=== PATIENT | male | born 1950 | race Caucasian/White ===

== ENCOUNTER → 2023-11-05 06:32 | Day surgery (SDC) | payer MEDICARE, OTHER, SELFPAY | LOC: GI 06:32 | PROVIDERS: ATTENDING PHYSICIAN Internal Medicine Gastroenterology; FAMILY PHYSICIAN Family Medicine | DX: K63.5 Polyp of colon (principal); K57.30 Diverticulosis of large intestine without perforation or abscess without bleeding; K64.8 Other hemorrhoids; R19.4 Change in bowel habit; Z85.038 Personal history of other malignant neoplasm of large intestine; Z98.0 Intestinal bypass and anastomosis status | CPT/HCPCS: 45380; 88305 ==

== ENCOUNTER 2023-11-20 10:24 | Outpatient (RCR) | payer MEDICARE, OTHER, SELFPAY | END 2023-11-21 10:14 | disposition home or self-care (01) | LOC: RPT 10:24 | PROVIDERS: ATTENDING PHYSICIAN Internal Medicine Gastroenterology; FAMILY PHYSICIAN Family Medicine | DX: R15.1 Fecal smearing (principal); R15.2 Fecal urgency; R15.9 Full incontinence of feces; M62.89 Other specified disorders of muscle; Z73.6 Limitation of activities due to disability; Z85.038 Personal history of other malignant neoplasm of large intestine; Z98.0 Intestinal bypass and anastomosis status | CPT/HCPCS: 97163; 97530 ==

== ENCOUNTER 2023-12-04 15:14 | Outpatient (RCR) | payer MEDICARE, OTHER, SELFPAY | END 2023-12-04 23:59 | disposition home or self-care (01) | LOC: RPT 15:14 | PROVIDERS: ATTENDING PHYSICIAN Internal Medicine Gastroenterology; FAMILY PHYSICIAN Family Medicine | DX: R15.1 Fecal smearing (principal); R15.2 Fecal urgency; R15.9 Full incontinence of feces; M62.89 Other specified disorders of muscle; Z73.6 Limitation of activities due to disability; Z85.038 Personal history of other malignant neoplasm of large intestine; Z98.0 Intestinal bypass and anastomosis status | CPT/HCPCS: 97140; 97530 ==

== ENCOUNTER 2024-01-15 15:56 | Outpatient (RCR) | payer MEDICARE, OTHER, SELFPAY | END 2024-01-15 23:59 | disposition home or self-care (01) | LOC: RPT 15:56 | PROVIDERS: ATTENDING PHYSICIAN Internal Medicine Gastroenterology; FAMILY PHYSICIAN Family Medicine | DX: R15.1 Fecal smearing (principal); R15.2 Fecal urgency; R15.9 Full incontinence of feces; M62.89 Other specified disorders of muscle; Z73.6 Limitation of activities due to disability; Z85.038 Personal history of other malignant neoplasm of large intestine; Z98.0 Intestinal bypass and anastomosis status | CPT/HCPCS: 97112; 97140; 97530 ==

== ENCOUNTER 2024-02-19 15:52 | Outpatient (RCR) | payer MEDICARE, OTHER, SELFPAY | END 2024-02-19 23:59 | disposition home or self-care (01) | LOC: RPT 15:52 | PROVIDERS: ATTENDING PHYSICIAN Internal Medicine Gastroenterology; FAMILY PHYSICIAN Family Medicine | DX: R15.1 Fecal smearing (principal); R15.2 Fecal urgency; R15.9 Full incontinence of feces; M62.89 Other specified disorders of muscle; Z73.6 Limitation of activities due to disability; Z85.038 Personal history of other malignant neoplasm of large intestine; Z98.0 Intestinal bypass and anastomosis status | CPT/HCPCS: 97110; 97112; 97140; 97530 ==

== ENCOUNTER 2024-02-28 23:26 | Inpatient (IN) | payer MEDICARE, OTHER, SELFPAY ==
[2024-02-28 19:52] VITALS: BP 155/106
[2024-02-28 20:12] VITALS: BP 104/73
--- NOTE | 2024-02-28 20:22 | ED.GENMED ---
History of Present Illness
General
Chief Complaint: Rectal Bleeding
Source: patient
Exam Limitations: none
Time Seen by Provider: 02/28/24 20:17
Travel History
Have you had any contact with someone who has COVID-19?: No
Do you have any symptoms of coronavirus? Fever > 100 degrees, chills, cough, shortness of breath, sore throat, loss of taste or smell, muscle aches, or headache?: No
History of Present Illness
History of Present Illness:
See MDM
Past History
Past History
ED Past Medical History: Cancer (Rectal cancer, cecal carcinoma, CLL (dx 2015)-follows with Dr. Vasquez.), HTN and Hypercholesterolemia
ED Past Surgical History: Bowel resection (Rectal carcinoma resection 1986, right hemicolectomy and lysis of adhesions March 2006 for excision of cecal carcinoma.)
Social History
Tobacco: Non-smoker
Alcohol: Occasional
Personal:
Living: with family
Employment: Employed
Family History
Family History: Hypertension and Other (Colon polyps)
Phy Exam
Physical Exam
Physical Exam:
See MDM
Course
Orders/Labs/Results
Orders:
Orders
02/28/24 20:26
0.9% Sodium Chloride 1000 ml [Nss] 1,000 ml IV BOLUS
02/28/24 20:29
Type+Screen Urgent
Complete Blood Count/With Diff Urgent
Comprehensive Metabolic Panel Urgent
PTT Urgent
Prothrombin Time Urgent
Abnormal Lab Results
02/28/24
20:29
WBC 162.4 H* 10^3/uL
(4.8-10.8)
RBC 3.97 L 10^6/uL
(4.70-6.10)
Hgb 12.2 L g/dL
(13.0-18.0)
Hct 37.3 L %
(39.0-52.0)
MCHC 32.7 L g/dL
(33.0-37.0)
Abs Immat Gran (auto) 0.3 H 10^3/uL
(0-0.05)
Absolute Neuts (auto) 6.8 H 10^3/uL
(1.4-6.5)
Absolute Lymphs (auto) 153.1 H 10^3/uL
(1.2-3.4)
Absolute Monos (auto) 1.8 H 10^3/uL
(0.1-0.6)
Neutrophils % 4.2 L %
(42.2-75.2)
Lymphocytes % 94.3 H %
(20.5-51.1)
Monocytes % 1.1 L %
(1.7-9.3)
APTT 23.1 L Sec
(23.4-35.0)
BUN 28 H mg/dl
(9-20)
Glucose 125 H mg/dl
(70-99)
Total Protein 6.1 L g/dl
(6.3-8.2)
02/28/24 20:29
02/28/24 20:29
Vital Signs
Initial and Last Documented VS:
Initial Vital Signs
Temp Pulse Resp BP Pulse Ox
99.3 F 135 20 155/106 96
02/28/24 19:52 02/28/24 19:52 02/28/24 19:52 02/28/24 19:52 02/28/24 19:52
Last Documented Vital Signs
Temp Pulse Resp BP Pulse Ox
99.3 F 87 20 130/66 94
02/28/24 19:52 02/28/24 21:15 02/28/24 21:15 02/28/24 21:00 02/28/24 21:15
MDM/Problems Addressed
Differential Diagnosis Includes:
HPI and MDM Narrative:
73-year-old male presenting for evaluation of multiple episodes bright red rectal bleeding. Patient has a history of colon cancer and states he follows with colorectal surgery. He states he has had a prior resection and is under the impression
that he is cancer free. Patient states he had a colonoscopy 4 months ago with biopsies performed. He denies being on blood thinners. Patient states he had a routine appointment yesterday with colorectal surgery. Internal exam showed no bleeding.
Patient states he started to have several episodes of bright red rectal bleeding today. Patient almost passed out in triage and was brought back immediately. Patient feeling better after he was placed in the bed. He states he has had 5-6
episodes of bright red rectal bleeding. Nursing confirmed that it was maroon-colored
Physical exam
General: Weak and fatigued
HEENT: protecting airway
Neck: appears supple
CV: No evidence of cyanosis
Resp: No accessory muscle use
Abd: Non-distended. Soft and nontender
Extremities: No deformities
Neuro: alert
Psych: Normal affect
Skin: Pale
Problems Addressed including Acute and Chronic Conditions affecting care:
1. Lower GI bleeding
Acuity: acute
Prognosis: unstable
Details: Likely in the setting of diverticulosis versus internal hemorrhoids. Will obtain hemoglobin and type and screen
Updates
Hemoglobin stable at 12. Baseline around 14. No rectal bleeding while in the emergency department. Likely source is diverticulosis. Will admit for hemoglobin
Differential Diagnosis (but not limited to): Diverticulosis, internal hemorrhoid bleeding, colon cancer
Testing considered: CT abdomen/pelvis but he denies abdominal pain
Drug therapy (if applicable): OTC meds, please see d/c instruction regarding Rx drugs
Amount and/or Complexity of Data Reviewed
Clinical info obtained from: Patient
External data reviewed: colonoscopy 4 months ago showed internal hemorrhoids, left-sided diverticulosis and a polyp that was removed
Labs I independently reviewed (but not limited to): Expected elevation of white blood cell given history of leukemia. Hemoglobin stable
Radiology: N/A
Pulse Ox: not hypoxic
EKG independently reviewed: N/A
Sludge Mill Operator: N/A
Critical Care: N/A
Risk of Complication:
Social Determinants of health: Good social support
Discussed with other providers: Hospitalist
Escalation of Care includes Admit/Obs: Given the significant amount of GI bleeding, will admit for hemoglobin trending
Occasional wrong word or 'sound a like' substitutions may have occurred due to the inherent limitations of voice recognition software. Read the chart carefully and recognize, using context, where substitutions have occurred.
*Critical Care Note
Total Time (30-74mins, 75-104mins- exclusive of procedures): Not Applicable
ED Attending Note
-
Portions of this chart may have been created with voice recognition software.� Occasional wrong word or��sound alike� substitutions may have occurred due to the inherent limitations of voice recognition software.
Discharge Plan
Departure
Patient Disposition: Admit
Date of Disposition: 02/28/24
Time of Disposition: 21:53
Admit to: Med/Surg
Presentation/result/management discussed w/ accepting MD/DO: Hospitalist
Discharge Problem:
Rectal bleeding
Prescriptions:
No Action
simvastatin 20 MG tablet
20 mg PO HS
aspirin 81 MG tablet,chewable
81 mg PO HS
lisinopril [Zestril] 40 MG tablet
40 mg PO HS
cholestyramine (with sugar) 4 GM powder in packet
4 gm PO DAILY
Metamucil Packet
1 packet PO DAILY
Theragen Tablet
1 tab PO HS
felodipine 10 mg Tablet Extended Release 24 Hr
10 mg PO HS
Tylenol PM Extra Strength 25-500 mg Tablet
2 tab PO HS
loperamide [Imodium A-D] 1 mg/7.5 mL Liquid
2 mg PO Q4HPRN PRN (Reason: diarrhea)
Referrals:
Lissa Toussaint DO [Family Provider] -
Interventions
Interventions:
*General Assessment Last Done: 02/28/24 19:57
*Neglect/Abuse Screening Last Done: 02/28/24 19:57
*ED COVID-19 Vaccine History Last Done: 02/28/24 19:57
TQ-Naqyco-Lbdludqypj Assessment Last Done: 02/28/24 20:56
ED- Cardiac Assessment Last Done: 02/28/24 20:55
ED- Pulmonary Assessment Last Done: 02/28/24 20:56
Discharge Date and Time
Print Language: MONGOLIAN
[2024-02-28] MEDS: NSS 1000 IV (20:28)
[2024-02-28 20:38] LABS: % Eosinophils 0.2 % (0-6); % Immature Granulocytes 0.2 % (0-0.5); % Lymphocytes 94.3 % (20.5-51.1); % Monocytes 1.1 % (1.7-9.3); % Neutrophils 4.2 % (42.2-75.2); Absolute Basophils 0.1 10^3/uL (0-0.2); Absolute Eosinophils 0.3 10^3/uL (0-0.7); Absolute Immature Granulocytes 0.3 10^3/uL (0-0.05); Absolute Lymphocytes 153.1 10^3/uL (1.2-3.4); Absolute Monocytes 1.8 10^3/uL (0.1-0.6); Absolute Neutrophils 6.8 10^3/uL (1.4-6.5); Hematocrit 37.3 % (39.0-52.0); Hemoglobin 12.2 g/dL (13.0-18.0); Mean Corp Hgb Conc. 32.7 g/dL (33.0-37.0); Mean Corpuscular Hgb 30.7 pg (27.0-31.0); Mean Platelet Volume 9.4 fL (7.4-10.4); Nucleated Red Blood Cells % 0 % (-); Platelet Count 225 10^3/uL (130-400); Red Blood Cell Count 3.97 10^6/uL (4.70-6.10); Red Cell Dist. Width 13.2 % (11.5-14.5)
[2024-02-28 20:46] LABS: APTT 23.1 Sec (23.4-35.0); INR 1.01; PT 13.3 Sec (11.4-14.6)
[2024-02-28 20:47] VITALS: BP 140/126
[2024-02-28 20:53] LABS: ALT (SGPT) 17 U/L (0-50); AST (SGOT) 25 U/L (17-59); Albumin 4.4 g/dl (3.5-5.0); Alkaline Phosphatase 64 U/L (38-126); Blood Urea Nitrogen 28 mg/dl (9-20); Calcium 9.3 mg/dl (8.4-10.2); Carbon Dioxide 25 mmol/L (22-30); Chloride 107 mmol/L (98-107); Glucose 125 mg/dl (70-99); Potassium 4.2 mmol/L (3.5-5.1); Sodium 141 mmol/L (135-145); Total Bilirubin 0.3 mg/dl (0.2-1.3); Total Protein 6.1 g/dl (6.3-8.2); eGFR > 60.00
[2024-02-28 21:00] VITALS: BP 130/66
[2024-02-28 21:12] LABS: White Blood Cell Count 162.4 10^3/uL (4.8-10.8)
[2024-02-28 22:00] VITALS: BP 131/63
--- NOTE | 2024-02-28 22:58 | HPS.HSE ---
Family Physician
-
Family Physician: Lissa Toussaint
Chief Complaint
-
Bright red blood per rectum
History of Present Illness
73-year-old male complaining of multiple episodes 6-8 of bright red rectal bleeding with some episodes flecks of stool 15 minutes after eating at a time and he will be this evening. He denies any abdominal pain or cramping. The patient reports he
had a follow-up yesterday with Dr. Duffy with digital rectal exam due to chronic incontinence of stool. He has been doing outpatient pelvic floor therapy. The patient reports he had history of colon cancer status post resection, right
hemicolectomy, rectal and cecal carcinoma. His last colonoscopy was 4 months ago he reports was normal. While in the ER he had maroon-colored stool. He denies headache, dizziness, fever, chills, chest pain or palpitations, cough, shortness of
breath, abdominal pain, nausea, vomiting, diarrhea. The patient has a past medical history of CLL Dx 2015, colon cancer status post resection 2001, rectal carcinoma 1986, cecal carcinoma with right hemicolectomy lysis adhesion 2005, HTN, HLD.
Medical History
Past Medical History
Past Medical History: Reports Other
Additional Past Medical History:
CLL Dx 2015
colon cancer, status post resection 2001
rectal carcinoma 1986
cecal carcinoma with right hemicolectomy lysis adhesion 2005
Chronic rectal incontinence is doing pelvic floor therapy
HTN
HLD
Past Surgical History: Reports Other
Additional Past Surgical History:
colon cancer status post resection 2001
rectal carcinoma 1986
cecal carcinoma with right hemicolectomy lysis adhesion 2005
Social History
Tobacco: Non-smoker
Alcohol: Occasional
Drug: None
Personal:
Living: With Family ()
Employment: Retired
Family History
Family History: Other (Father CAD/CABG age 95, mother age 93 )
Allergies / Home Medications
Allergies reflects when Allergies were last updated in [facility].
Home Medications with original date entered in [facility]
Allergy/Medication List:
Allergies
Allergy/AdvReac Type Severity Reaction Status Date / Time
NKA - No Known Allergies Allergy none Uncoded 02/28/24 19:51
Home Medications
aspirin 81 mg chewable tablet 81 mg PO HS 06/18/17
cholestyramine (with sugar) 4 gram powder for susp in a packet 4 gm PO DAILY 06/18/17
lisinopril 40 mg tablet (Zestril) 40 mg PO HS 06/18/17
simvastatin 20 mg tablet 20 mg PO HS 06/18/17
diphenhydramine 25 mg-acetaminophen 500 mg tablet (Tylenol PM Extra Strength) 2 tab PO HS 02/28/24
felodipine 10 mg tablet,extended release 24 hr 10 mg PO HS 02/28/24
loperamide 1 mg/7.5 mL oral liquid (Imodium A-D) 2 mg PO Q4HPRN PRN diarrhea 02/28/24
psyllium 1 packet PO DAILY 02/28/24
therapeutic multivitamin 1 tab PO HS 02/28/24
Review of Systems
-
History Source: Patient and Family ( and son at bedside)
A 12 point ROS was completed and negative except as noted: Yes
Constitutional: Denies Fever, Fatigue or Chills
EENT: Denies Sore Throat or Runny Nose
Respiratory: Denies Cough or Trouble Breathing
Cardiac: Denies Chest Pain, Diaphoresis, Palpitations or Syncope
Abdomen/GI: Reports Bloody Stools; Denies Abdominal Pain, Nausea, Vomiting, Diarrhea, Constipated or Black Stools
: Denies Dysuria, Frequency, Flank Pain, Incontinence or Difficulty Voiding
Musculoskeletal: Denies Joint Pain or Edema
Skin: Denies Itching or Rash
Neurological: Denies Dizzy, Headache or Weakness
Endocrine: Reports No Symptoms
Hematologic/Lymphatic: Reports No Symptoms
Psych: Reports Calm
Physical Exam
Vital Signs
Vital Signs
Temp Pulse Resp BP Pulse Ox
99.3 F 84 25 131/63 96
02/28/24 19:52 02/28/24 22:15 02/28/24 22:15 02/28/24 22:00 02/28/24 22:15
Physical Exam
General: Comfortable and Conversant; No Pain, Fever or Chills
HEENT: NormoCephalic, Anicteric, Moist mucous membranes, PERRLA, Vandiver Conjunctivae and No Ptosis
Respiratory: Clear; No Wheezes, Rales or Rhonchi
Cardiac: S1/S2 and Regular Rhythm; No Murmur, Rub, Gallop or Peripheral Edema
Breast: Deferred by me
GI: Soft, Non Tender, Non Distended, Normal Bowel Sounds and No Hepatosplenomegaly
Rectal: Hem Positive (Maroon stool in the ER)
Genito-urinary: Deferred by me
Musculoskeletal: No Clubbing, No Cyanosis and No Edema
Skin: Warm and Dry; No Rash
Neuro: AO x 3, No Motor Deficits, Nonfocal/grossly intact, Cranial Nerves Intact and No Sensory Deficits; No Slurred Speech, Facial Droop, Tremors or Sedated
Psych: Calm
Laboratory Results
-
02/28/24 20:29
02/28/24 20:29
Laboratory Results
PT 13.3 Sec (11.4-14.6) 02/28/24 20:29
INR 1.01 02/28/24 20:29
APTT 23.1 Sec (23.4-35.0) L 02/28/24 20:29
Total Bilirubin 0.3 mg/dl (0.2-1.3) 02/28/24 20:29
AST 25 U/L (17-59) 02/28/24 20:29
ALT 17 U/L (0-50) 02/28/24 20:
Alkaline Phosphatase 64 U/L (38-126) 02/28/24 20:29
Data Reviewed
-
Lab Data: Labs Reviewed by me
Impression/Plan
-
Impression/Plan:
Admit to tele
#Bright red blood per rectum concern for lower GI bleed vs diverticular bleed
#Chronic rectal incontinence is doing pelvic floor therapy
-Type and screen
-Hold aspirin, cholestyramine
-N.p.o.
-IV PPI daily
-Consult GI
-Consult colorectal
-H&H every 8 hours
#Hx Colon CA s/p resection 1985, 2001
#Rectal carcinoma 1986
#Right hemicolectomy with lysis of adhesions 2005 cecal carcinoma
-Hold cholestyramine, aspirin, lisinopril
Colonoscopy 11/05/2023: Nonbleeding internal hemorrhoids, diverticulosis left colon, 5 mm polyp removal at anus
#CLL Dx 2015
WBC 162.4 prior baseline 78.6 in 2019
-Consult Hematology
#HTN�benign
BP 131/63
Hold lisinopril 40 mg at bedtime
cont felodipine 10 mg at bedtime
#HLD
-Hold simvastatin 2 mg at bedtime
DVT prophylaxis
-SCDs
Full code
[2024-02-28 23:00] VITALS: BP 130/66
--- NOTE | 2024-02-28 23:03 | W.PN.UPDATE ---
Update Note
Progress Note Update
This note serves as an addendum to the H&P by adult health clinical nurse specialist PETER Darby CUMMINGS
HPI
73M HX CLL, Rectal s/p resection 1986, Rt hemicolectomy and lysis of adhesions March 2006 for excision of cecal carcinoma, essential HTN seen at ER for evalaution of BRBPR.
Acute BRBPR
- multiple episodes of maroon colored per ASSESSMENT DIRECTOR
- painless bleeding
- not on blood thinners
- associated with presyncopal/ almost passed out in tiage
- Last colonoscopy 11/05/2023 Dr Carolina
PMHX
Rectal cancer, cecal carcinoma, CLL (dx 2015)-follows with Dr. Vasquez.), HTN and Hypercholesterolemia
PSHX
Bowel resection (Rectal carcinoma resection 1986, right hemicolectomy and lysis of adhesions March 2006 for excision of cecal carcinoma.)
SHX:
Non-smoker
Alcohol: Occasional
Personal:
Living: with family
Employment: Employed
FHX
Hypertension and Other (Colon polyps)
Reviewed VS: T 99.3 HR 85 BP 130/63 RR25 POx 96
PE
Gen: looks tired
HEENT: anicteric
Neck: supple
Lungs: CTA
Cor: RRR S1 S2
Abdomen: Non-distended. Soft and nontender
[employer]ER[employer] SPECIALIST: AAO3, NFND
MS: no edema
Psych: appropriate
Data
WCC 162 - baseline 55- 70s
Hgb 12. Baseline around 14
INR 1.0
Unremarkable CMP
Last colonoscopy 11/05/23 : Dr Carolina
- Non-bleeding internal hemorrhoids.
- Diverticulosis in the left colon.
- Irregular dentate line.
- One 5 mm polyp at 70 cm proximal to the anus, removed with a jumbo cold forceps.
Resected and retrieved.
- Patent end-to-side colon-colonic anastomosis, characterized by healthy appearing mucosa.
- Biopsies were taken with a cold forceps from the entire colon for evaluation of microscopic colitis.
NO PRIOR hospitalist admission:
ASSESSMENT & PLAN
Acute multiple episodes painless maroon colored BPR suspect LGIB DDX: diverticular bleeding
Associated with presyncope
PHX Rectal s/p resection 1986, Rt hemicolectomy and lysis of adhesions March 2006 for excision of cecal CA
Of note; seen by Dr Duffy ( CRS ) yesterday and had DAMEON exam
- Interval Hgb drop from 14 to 12
- so far hemodynamically stable
- Blood consented
- T & S
- NPO and IVF
- Trend H & H q8h
- Held ASA and Lisinopril
- IV PPI daily
- GI consult
- CRS consult
HX CLL (dx 2015)
-follows with Dr. Vasquez
- Heme consult
Essential HTN
- Held Lisinopril
Hypercholesterolemia
- Held Simvastatin
DVT Px: SCD
Code: Full
IP TLM
[2024-02-29] VITALS (8 sets, daily range): BP systolic 129–149; BP diastolic 65–85; PULSE 80; O2SAT 98
--- NOTE | 2024-02-29 02:20 | TRANSFER ---
Pt admitted from ED. Pt was able to walk from stretcher to bed with no assistance. VSS. AAO x3. Pt oriented to room and call estevez placed within reach
[2024-02-29 02:27] LABS: Hematocrit 31.4 % (39.0-52.0); Hemoglobin 10.6 g/dL (13.0-18.0)
--- NOTE | 2024-02-29 07:11 | CON.ONC ---
Impression
Impression
Lower GI bleed (suspect diverticular bleed)
CLL Dx 2016
Plan
Plan
Monitor H&H. So far just modest anemia, hgB = 10.6.
GI consult pend.
CLL is stable and chronic and no specific intervention is needed at this time. Baseline WBC 117k, slight elevation to 162k now seen might just be stress leukemoid reaction and should improve with improvement of bleeding.
No other specific heme interventions. Outpt F/U with Dr. Vasquez when scheduled.
Will sign off. Call again if needed.
Patient History
History of Present Illness
CC: Rectal bleeding
HPI:
73-year-old male with prior remote history colon and rectal cancers 1986 & 2001 up to date with screening colonoscopy 10/2023 (Dr. Carolina) presents to ER with 5 episodes of bright red rectal bleeding yesterday at home. He had 2 additional episodes in
the ER. He had a follow-up with Dr. Duffy with digital rectal exam due to chronic incontinence of stool. He has been doing outpatient pelvic floor therapy. The patient reports he had history of colon cancer status post resection, right
hemicolectomy, rectal and cecal carcinoma. No further BRBPR since admitted to room. Only A/C he takes is ASA 81 QD.
He denies headache, dizziness, chest pain, palpitations, shortness of breath, abdominal pain, nausea, vomiting, diarrhea. Patient follows with Dr. Vasquez for stage 0 CLL on no Tx (expectant observation). We are consulted for CLL. GI and CRS
consulted for GI bleed (consults pending).
Past-Medical/Surgical History
PMH: CLL Dx 2015, colon (cecal) cancer status post resection 2001, rectal carcinoma 1986, HTN, HLD, chronic rectal incontinence is doing pelvic floor therapy
PSH: rectal carcinoma 1986, right hemicolectomy (cecal colon cancer) 2001, lysis adhesion 2005
SH:
Tobacco: Non-smoker
Alcohol: Occasional
Drug: None
Personal:
Living: With Family ()
Employment: Retired
FH: Father CAD/CABG age 95, mother age 93
Patient Medication
�Medication �Instructions �Recorded �Confirmed �Last Taken �Type
aspirin 81 mg chewable tablet 81 mg PO HS 06/18/17 02/28/24 02/27/24 History
cholestyramine (with sugar) 4 gram 4 gm PO DAILY 06/18/17 02/28/24 02/28/24 History
powder for susp in a packet
lisinopril 40 mg tablet (Zestril) 40 mg PO HS 06/18/17 02/28/24 02/27/24 History
simvastatin 20 mg tablet 20 mg PO HS 06/18/17 02/28/24 02/27/24 History
diphenhydramine 25 2 tab PO HS 02/28/24 02/28/24 02/27/24 History
mg-acetaminophen 500 mg tablet
(Tylenol PM Extra Strength)
felodipine 10 mg tablet,extended 10 mg PO HS 02/28/24 02/28/24 02/27/24 History
release 24 hr
loperamide 1 mg/7.5 mL oral liquid 2 mg PO Q4HPRN PRN diarrhea 02/28/24 02/28/24 02/28/24 History
(Imodium A-D)
psyllium 1 packet PO DAILY 02/28/24 02/28/24 02/28/24 History
therapeutic multivitamin 1 tab PO HS 02/28/24 02/28/24 02/27/24 History
Active Medications
Generic Name Dose Route Start Last Admin
Trade Name Freq PRN Reason Stop Dose Admin
Felodipine 10 mg 02/29/24 22:00
Felodipine 10 Mg Extended Release Tablet PO 03/28/24 21:59
HS SHERRI
Pantoprazole Sodium 40 mg 02/29/24 08:00
Pantoprazole Sodium 40 Mg/10 Ml Vial IV 03/28/24 07:59
DAILY SHERRI
Sodium Chloride 0 flush 02/28/24 23:00
Sodium Chloride 0.9% (Flush) Syringe IV 03/27/24 22:59
PER PROTOCOL SHERRI
Sodium Chloride 10 ml 02/29/24 08:00
Sodium Chloride 0.9% (Preservative Free) 10 Ml Vial IV 03/28/24 07:59
DAILY HSERRI
Physical Exam
-
General: Well Developed, Well Nourished, No Apparent Distress and Comfortable
HEENT: Negative Jaundice
Cardiology: S1 and S2
Pulmonary: Clear
GI: Soft and Normal Bowel Sounds; Negative Distended
Extremities: No C/C/E
Hematologic / Lymphatic: No Lymphadenopathy
Labs
Lab Results
WBC 162.4 10^3/uL (4.8-10.8) H* 02/28/24 20:29
RBC 3.97 10^6/uL (4.70-6.10) L 02/28/24 20:
Hgb 10.6 g/dL (13.0-18.0) L 02/29/24 02:18
Hct 31.4 % (39.0-52.0) L 02/29/24 02:18
MCV 94.0 fL (80.0-94.0) 02/28/24 20:29
MCH 30.7 pg (27.0-31.0) 02/28/24 20:
MCHC 32.7 g/dL (33.0-37.0) L 02/28/24 20:29
RDW 13.2 % (11.5-14.5) 02/28/24 20:
Plt Count 225 10^3/uL (130-400) 02/28/24 20:
MPV 9.4 fL (7.4-10.4) 02/28/24 20:29
Abs Immat Gran (auto) 0.3 10^3/uL (0-0.05) H 02/28/24 20:
Absolute Neuts (auto) 6.8 10^3/uL (1.4-6.5) H 02/28/24 20:
Absolute Lymphs (auto) 153.1 10^3/uL (1.2-3.4) H 02/28/24 20:29
Absolute Monos (auto) 1.8 10^3/uL (0.1-0.6) H 02/28/24 20:
Absolute Eos (auto) 0.3 10^3/uL (0-0.7) 02/28/24 20:
Absolute Basos (auto) 0.1 10^3/uL (0-0.2) 02/28/24:
Immature Gran % 0.2 % (0-0.5) 02/28/24 20:
Neutrophils % 4.2 % (42.2-75.2) L 02/28/24 20:
Lymphocytes % 94.3 % (20.5-51.1) H 02/28/24:
Monocytes % 1.1 % (1.7-9.3) L 02/28/24 20:
Eosinophils % 0.2 % (0-6) 02/28/24:
Basophils % 0.0 % (0-2) 02/28/24 20:
Creatinine 0.8 mg/dL (0.7-1.3) 02/28/24 20:
Vital Signs
Vital Signs
Temp Pulse Resp BP Pulse Ox
99.3 F 82 18 139/84 97
02/29/24 01:17 02/29/24 01:17 02/29/24 01:17 02/29/24 01:17 02/29/24 01:17
[2024-02-29] MEDS: PROTONIX IV 40 MG IV (08:08)
[2024-02-29] MEDS: NSS (PRESERVATIVE FREE) 10 ML IV (08:08)
[2024-02-29 09:12] LABS: % Basophils 0.2 % (0-2); % Eosinophils 0.1 % (0-6); % Immature Granulocytes 0.2 % (0-0.5); % Lymphocytes 92.8 % (20.5-51.1); % Monocytes 1.3 % (1.7-9.3); % Neutrophils 5.4 % (42.2-75.2); Absolute Basophils 0.2 10^3/uL (0-0.2); Absolute Eosinophils 0.1 10^3/uL (0-0.7); Absolute Immature Granulocytes 0.3 10^3/uL (0-0.05); Absolute Lymphocytes 118.5 10^3/uL (1.2-3.4); Absolute Monocytes 1.6 10^3/uL (0.1-0.6); Absolute Neutrophils 6.9 10^3/uL (1.4-6.5); Hematocrit 34.2 % (39.0-52.0); Hemoglobin 10.6 g/dL (13.0-18.0); Mean Corpuscular Hgb 29.9 pg (27.0-31.0); Mean Corpuscular Volume 96.6 fL (80.0-94.0); Mean Platelet Volume 9.4 fL (7.4-10.4); Nucleated Red Blood Cells % 0 % (-); Platelet Count 179 10^3/uL (130-400); Red Blood Cell Count 3.54 10^6/uL (4.70-6.10); Red Cell Dist. Width 13.3 % (11.5-14.5)
[2024-02-29 09:15] LABS: White Blood Cell Count 127.7 10^3/uL (4.8-10.8)
[2024-02-29 09:36] LABS: Blood Urea Nitrogen 23 mg/dl (9-20); Carbon Dioxide 24 mmol/L (22-30); Chloride 109 mmol/L (98-107); Estimated Creatinine Clearance 106 ml/min; Glucose 105 mg/dl (70-99); Potassium 4.1 mmol/L (3.5-5.1); Sodium 140 mmol/L (135-145); eGFR > 60.00
--- NOTE | 2024-02-29 10:30 | CON.GI ---
Addendum entered and electronically signed by Claudia Lopez MD 02/29/24 20:21:
I saw and examined the patient.
The CASKET COVERER or PA's note was reviewed and I agree with the note.
Comment: 73-year-old male with history of rectal cancer in 1986, cecal cancer in 2001 s/p resection, history of CML presenting with painless rectal bleeding starting yesterday at 6 PM. Had 6 or 7 episodes, both those episodes were emergency room
and nothing since this morning. No previous episodes of GI bleeding. History of chronic diarrhea, urgency and leakage, and has been following up with Dr. Carolina, on Benefiber and Colestid with initial improvement but now continues to have diarrhea and
is currently undergoing pelvic floor physical therapy. He also has history of HSIL, follows up with Dr. Duffy. No NSAID use. Colonoscopy in October [address] Carolina, 5 mm benign polyp removed, healthy-appearing colocolonic anastomosis,
diverticulosis, otherwise unremarkable. In the ER, hemoglobin on admission 12.2 and dropped to 10.3.
-Painless hematochezia, likely diverticular
Currently hemodynamically stable. Monitor H&H and transfuse if needed.
If overt active bleeding, CT angiogram will be considered, if persistent slow bleeding, will do a colonoscopy.
If bleeding stops, will advance diet as tolerated and patient has follow-up in the office with us in March.
Will follow-up
Original Note:
Consultation
-
Date/Time Consultation Requested: 02/28/24 9163
Date/Time Consultation Performed: 02/29/24 1000
Requesting Provider: ALDAIR Garcia
Performing Provider: Dr. Lopez/ALDAIR Pittman
Reason for Consultation: rectal bleeding
Medical History
Chief Complaint / HPI
Chief Complaint: rectal bleeding
History of Present Illness:
73-year-old male with past medical history of CLL (2016) colon cancer s/p resection 2001 (cecal cancer), rectal carcinoma (1986), hypertension, hyperlipidemia who presents to the emergency room with rectal bleeding. Asked to evaluate for the same.
The patient states that yesterday evening around 6 PM he felt the urge to have a bowel movement. He states that this was straight bright red blood per rectum. He states that he had another large episode. He drove himself to the emergency room.
He continued to have multiple episodes associated with sweating, diaphoresis and feeling faint. The patient's last episode was last evening in the emergency room. He is tolerating clear liquids. This was not associated with any abdominal pain.
He denies any fevers, chills, nausea, vomiting, melena, dysphagia or odynophagia. He denies any early satiety or unintentional weight loss. He takes aspirin 81 mg daily. He takes no anticoagulation. He had a recent rectal exam with colorectal
surgery on . He had no complaints at that time. He does follow with pelvic floor therapy for history of incontinence. Patient has a history of CLL and states his baseline white count is around 116. This was last checked in the early
spring. The patient follows with Dr. Vasquez. Current white count is 127 down from 162. Hemoglobin is 10.6 down from 12.2. Hematocrit is 34.2 down from 37.2, platelets 179.
Past Medical History
Past Medical History: Cancer (Colon cancer x 2, CLL), HTN and Hypercholesterolemia
Past Surgical History: Bowel Resection (X 2) and Other (Lysis of adhesions)
Social History
Tobacco: Non-Smoker
Alcohol: Occasional
Drug: None
Personal:
Living: With Family
Family History
Family History: Other (History gastrointestinal malignancy or IBD)
Allergies / Home Medications
Allergy/AdvReac Type Severity Reaction Status Date / Time
NKA - No Known Allergies Allergy none Uncoded 02/28/24 19:51
�Medication �Instructions �Recorded
aspirin 81 mg chewable tablet 81 mg PO HS Heart Disease/Condition 06/18/17
cholestyramine (with sugar) 4 gram 4 gm PO DAILY High Cholesterol 06/18/17
powder for susp in a packet
lisinopril 40 mg tablet (Zestril) 40 mg PO HS Blood Pressure 06/18/17
simvastatin 20 mg tablet 20 mg PO HS High Cholesterol 06/18/17
diphenhydramine 25 2 tab PO HS Pain 02/28/24
mg-acetaminophen 500 mg tablet
(Tylenol PM Extra Strength)
felodipine 10 mg tablet,extended 10 mg PO HS High Cholesterol 02/28/24
release 24 hr
loperamide 1 mg/7.5 mL oral liquid 2 mg PO Q4HPRN PRN diarrhea 02/28/24
(Imodium A-D)
psyllium 1 packet PO DAILY FIBER 02/28/24
therapeutic multivitamin 1 tab PO HS Supplement 02/28/24
Review of Systems
-
All other systems: A 12 pt ROS was Negative except as stated above in HPI
Vital Signs
Temp Pulse Resp BP Pulse Ox
98.4 F 77 19 135/73 97
02/29/24 07:30 02/29/24 07:30 02/29/24 07:30 02/29/24 07:30 02/29/24 07:30
Physical Exam
Exam
General: No Apparent Distress
HEENT: Anicteric
Respiratory: Clear
Cardiac: Regular Rhythm
GI: Soft, Non Tender, Non Distended and Normal Bowel Sounds
Musculoskeletal: No Edema
Neuro: AO x 3
Psych: Calm
Results
WBC 127.7 10^3/uL (4.8-10.8) H* 02/29/24 08:49
Hgb 10.6 g/dL (13.0-18.0) L 02/29/24 08:49
Hgb Cancelled 02/29/24 08:49
Hct 34.2 % (39.0-52.0) L 02/29/24 08:49
Hct Cancelled 02/29/24 08:49
MCV 96.6 fL (80.0-94.0) H 02/29/24 08:49
Plt Count 179 10^3/uL (130-400) D 02/29/24 08:49
Absolute Neuts (auto) 6.9 10^3/uL (1.4-6.5) H 02/29/24 08:49
PT 13.3 Sec (11.4-14.6) 02/28/24 20:29
INR 1.01 02/28/24 20:29
APTT 23.1 Sec (23.4-35.0) L 02/28/24 20:29
Sodium 140 mmol/L (135-145) 02/29/24 08:49
Potassium 4.1 mmol/L (3.5-5.1) 02/29/24 08:49
Chloride 109 mmol/L (98-107) H 02/29/24 08:49
Carbon Dioxide 24 mmol/L (22-30) 02/29/24 08:49
BUN 23 mg/dl (9-20) H 02/29/24 08:49
Creatinine 0.5 mg/dL (0.7-1.3) L 02/29/24 08:49
Calcium 9.0 mg/dl (8.4-10.2) 02/29/24 08:49
Total Bilirubin 0.3 mg/dl (0.2-1.3) 02/28/24 20:29
AST 25 U/L (17-59) 02/28/24 20:29
ALT 17 U/L (0-50) 02/28/24 20:29
Alkaline Phosphatase 64 U/L (38-126) 02/28/24 20:29
Diagnostic Image Results:
none
Prior GI Procedures:
EGD:
Colonoscopy: 11/05/2023 ([facility])
- Non-bleeding internal hemorrhoids.
- Diverticulosis in the left colon.
- Irregular dentate line.
- One 5 mm polyp at 70 cm proximal to the anus,
removed with a jumbo cold forceps. Resected and
retrieved.
- Patent end-to-side colo-colonic anastomosis,
characterized by healthy appearing mucosa.
- Biopsies were taken with a cold forceps from the
entire colon for evaluation of microscopic colitis.
Colonoscopy 09/21/2021 ([facility]) - Patent end-to-end colo-rectal anastomosis,
characterized by healthy appearing mucosa.
- Patent end-to-side ileo-colonic anastomosis,
characterized by healthy appearing mucosa.
- The examination was otherwise normal.
- No specimens collected.
Sigmoidoscopy 11/01/20 ([facility]) - One 5 mm polyp in the rectum, removed with a hot
snare. Resected and retrieved.
- One 5 mm polyp in the distal rectum, removed with a
hot snare. Resected and retrieved.
- One 3 mm polyp at the anus, removed with a jumbo
cold forceps. Resected and retrieved.
- The examination was otherwise normal.
Colonoscopy 04/25/2020 ([facility]) - Rectal mass 0 to 1 cm from the anal verge.
- One 8 mm polyp at the anus. Biopsied.
- Patent end-to-end colo-colonic anastomosis,
characterized by healthy appearing mucosa.
- Patent end-to-side ileo-colonic anastomosis,
characterized by healthy appearing mucosa.
- The examination was otherwise normal.
Colonoscopy 04/17/2016 ([facility]) - Patent end-to-end ileo-colonic anastomosis.
- Patent end-to-side ileo-colonic anastomosis.
- The examination was otherwise normal.
Colonoscopy 02/13/2013 ([facility]) - Patent end-to-side ileo-colonic anastomosis.
- The examination was otherwise normal.
Colonoscopy 04/06/2011 ([facility])- External and internal hemorrhoids.
- Stricture rectum.
- Patent end-to-end ileo-colonic anastomosis. [Biopsied].
- Patent end-to-side ileo-colonic anastomosis.
[Biopsied].
- Diverticulosis sigmoid colon.
Colonoscopy 08/29/2009 ([facility])
- Diverticulosis in the sigmoid colon.
- Patent end-to-end colo-colonic anastomosis.
- Patent end-to-side ileo-colonic anastomosis.
Assessment / Plan
-
73-year-old male with past medical history of CLL (2015) colon cancer s/p resection 2001 (cecal cancer), rectal carcinoma (1986), hypertension, hyperlipidemia who presents to the emergency room with rectal bleeding. Asked to evaluate for the same.
The patient states that yesterday evening around 6 PM he felt the urge to have a bowel movement. He states that this was straight bright red blood per rectum. He states that he had another large episode. He drove himself to the emergency room.
He continued to have multiple episodes of painless rectal bleeding that was maroon associated with sweating, diaphoresis and feeling faint. The patient's last episode was last evening in the emergency room. He is tolerating clear liquids.Patient
has a history of CLL and states his baseline white count is around 116. This was last checked in the early spring. The patient follows with Dr. Vasquez. Current white count is 127 down from 162. Hemoglobin is 10.6 down from 12.2. Hematocrit
is 34.2 down from 37.2, platelets 179.
Impression:
GI bleed, bright red blood. Likely diverticular. Patient with recent colonoscopy 4 months ago and left-sided diverticular disease.
Acute blood loss anemia
History of CLL
History of colon cancer x 2, status post right hemicolectomy, low anterior resection
Plan:
-Trend hemoglobin
-Clear liquid diet
-Hematology consulted
-Colorectal surgery consulted
-If with acute active bleeding would then perform CTA
Data Reviewed
-
Old Records: Reviewed
-
-
Thank you for consultation and allowing me to participate in the patient's care. Please call the assistant front office manager GI physician during the after hours with any questions or concerns.
--- NOTE | 2024-02-29 11:26 | CON.CRS ---
Consultation
-
Date/Time Consultation Requested: 02/28/24 9252
Requesting Provider: Marla
Reason for Consultation: bright red blood per rectum concern diverticular bleed
Medical History
-
Chief Complaint: maroon stools
History of Present Illness:
73 yo male with a h/o CLL, rectal ca s/p LAR in 1986, cecal with right colectomy 2005, anal HGISL 2019 under surveillance with recent outpatient office visit with Dr. Duffy with anoscopy (normal) preformed on February 26 who presents with maroon colored
stools which began last night at home causing him to present for evaluation. He had an episode in the ER with a large amount of maroon blood noted of which he was incontinent with no episodes since. On exam, there is dried blood around the rectum
but no active bleeding noted. No external hemorrhoids present. He denies abdominal pain and is nontender on exam. He denies nausea or vomiting.
Past Medical History
Past Medical History: Cancer (Rectal (LAR with XRT in 1986), Cecal (right colectomy 2005), CLL) and Other (Anal lesion with HGSIL (dx 2019, under observation with last anoscopy on 02/27/24), last colonoscopy 10/2023 with polyps removed, diverticular
disease present to left colon)
Past Surgical History: Bowel Resection (LAR in 1986, Right colectomy 2005) and Tonsilectomy
Social History
Tobacco: Former Smoker
Alcohol: Occasional
Family History
Family History: Reviewed & Not Pertinent
Allergies / Home Medications
Allergy/AdvReac Type Severity Reaction Status Date / Time
NKA - No Known Allergies Allergy none Uncoded 02/28/24 19:51
�Medication �Instructions �Recorded �Confirmed �Type
aspirin 81 mg chewable tablet 81 mg PO HS Heart Disease/Condition 06/18/17 02/28/24 History
cholestyramine (with sugar) 4 gram 4 gm PO DAILY High Cholesterol 06/18/17 02/28/24 History
powder for susp in a packet
lisinopril 40 mg tablet (Zestril) 40 mg PO HS Blood Pressure 06/18/17 02/28/24 History
simvastatin 20 mg tablet 20 mg PO HS High Cholesterol 06/18/17 02/28/24 History
diphenhydramine 25 2 tab PO HS Pain 02/28/24 02/28/24 History
mg-acetaminophen 500 mg tablet
(Tylenol PM Extra Strength)
felodipine 10 mg tablet,extended 10 mg PO HS High Cholesterol 02/28/24 02/28/24 History
release 24 hr
loperamide 1 mg/7.5 mL oral liquid 2 mg PO Q4HPRN PRN diarrhea 02/28/24 02/28/24 History
(Imodium A-D)
psyllium 1 packet PO DAILY FIBER 02/28/24 02/28/24 History
therapeutic multivitamin 1 tab PO HS Supplement 02/28/24 02/28/24 History
Review of Systems
-
History Source: Patient
All other systems: Negative unless noted
A 10 point review of systems was completed, and was negative except as per HPI.
Physical Exam
Vital Signs
Temp 98.4 F 02/29/24 11:13
Pulse 77 02/29/24 11:13
Resp Rate 18 02/29/24 11:13
Blood pressure 136/69 02/29/24 11:13
SaO2 98 02/29/24 11:13
02/28/24 02/29/24 03/01/24
06:59 06:59 06:59
Actual Weight 77.167 kg
Body Mass Index (BMI) 0.0
Lab Results / Allergies
02/29/24 08:49
WBC 127.7 10^3/uL (4.8-10.8) H* 02/29/24 08:49
Hgb 10.6 g/dL (13.0-18.0) L 02/29/24 08:49
Hgb Cancelled 02/29/24 08:49
Hct 34.2 % (39.0-52.0) L 02/29/24 08:49
Hct Cancelled 02/29/24 08:49
Plt Count 179 10^3/uL (130-400) D 02/29/24 08:49
Abs Immat Gran (auto) 0.3 10^3/uL (0-0.05) H 02/29/24 08:49
Neutrophils % 5.4 % (42.2-75.2) L 02/29/24 08:49
Allergy/AdvReac Type Severity Reaction Status Date / Time
NKA - No Known Allergies Allergy none Uncoded 02/28/24 19:51
Physical Exam
General: Well Developed and Well Nourished
HEENT: Moist Mucous Membranes
Respiratory: Non Labored Respirations
GI: Soft, Non Tender and Non Distended
Rectal: Brown (old blood present); Negative Hemorrhoids
Skin: Warm and Dry
Neuro: Awake, Alert and AO x 3
Psych: Calm
Assessment / Plan
-
73 yo male with a h/o CLL, rectal ca s/p LAR in 1986, cecal with right colectomy 2005, anal HGISL 2019 under surveillance with recent outpatient office visit with Dr. Duffy with anoscopy (normal) preformed on February 26, Last colonosocpy was in October
with Dr. Carolina with diverticular disease noted and polyps removed presenting with maroon colored stools which began last night at home causing him to present for evaluation. He had an episode in the ER with a large amount of maroon blood noted of which
he was incontinent with no episodes since. Suspect diverticular bleed. Initial drop in h/h noted, but now stable counts. Leukocytosis noted, with hematology following given CLL history. AFVSS.
--Ok for clear liquids
--Trend labs
--GI following with us
[2024-02-29 15:05] LABS: Hematocrit 33.2 % (39.0-52.0); Hemoglobin 10.3 g/dL (13.0-18.0)
--- NOTE | 2024-02-29 15:59 | W.PN.HOSP.TC ---
Today's Communication/Plan
-
Diet advanced
Monitor for bleeding - if patient has acute active bleeding would then perform CTA versus bleeding scan for possible IR embolization; can also consider GI for colonoscopy with endoscopic control of bleeding; surgery remains last resort unless there
is concern for hemorrhoidal bleeding -- as per colorectal surgery
Assessment / Plan
Assessment / Plan
Physical Exam
General: Not in acute distress
HEENT: Normocephalic
Respiratory: CTAB
Cardiac: S1/S2 and Regular Rhythm
GI: Soft, Non Tender, Non Distended, Normal Bowel Sounds and No Hepatosplenomegaly
Musculoskeletal: No Cyanosis and No Edema
Skin: Warm and Dry
Neuro: AAO x 3, No Motor Deficits, Nonfocal/grossly intact
Psych: Calm
Assessment/Plan
#Bright red blood per rectum concern for lower GI bleed vs diverticular bleed
#Chronic rectal incontinence is doing pelvic floor therapy
-Type and screen
-Hold aspirin, cholestyramine
-Clear Liquid Diet
-IV PPI daily
-GI evaluation appreciated
-Colorectal surgery evaluation appreciated
-If patient has acute active bleeding would then perform CTA versus bleeding scan for possible IR embolization; can also consider GI for colonoscopy with endoscopic control of bleeding; surgery remains last resort unless there is concern for
hemorrhoidal bleeding -- as per colorectal surgery
#Hx Colon CA s/p resection 1985, 2001
#Rectal carcinoma 1986
#Right hemicolectomy with lysis of adhesions 2005 cecal carcinoma
-Hold cholestyramine, aspirin, lisinopril
#CLL Dx 2015
WBC 162.4 prior baseline 78.6 in 2020
-Consulted Hematology, recommendations appreciated
#HTN�benign
BP 131/63
Hold lisinopril 40 mg at bedtime
cont felodipine 10 mg at bedtime
#HLD
-Hold simvastatin 2 mg at bedtime
DVT prophylaxis
-SCDs
Full code
Anticipated Discharge: 24 - 48 hours
Subjective/Interval History
-
Date of Service: February 29, 2024
Patient was seen and examined. He reported that his symptoms have improved since he was admitted.
Objective Data
-
Labs:
Laboratory Results
02/29/24 02/29/24 02/29/24
08:49 08:49 08:49
WBC 127.7 H*
Hgb Cancelled 10.6 L
Hct Cancelled 34.2 L
Plt Count 179 D
Sodium 140
Potassium 4.1
Chloride 109 H
Carbon Dioxide 24
BUN 23 H
Creatinine 0.5 L
Glucose 105 H
Calcium 9.0
02/29/24
14:58
WBC
Hgb 10.3 L
Hct 33.2 L
Plt Count
Sodium
Potassium
Chloride
Carbon Dioxide
BUN
Creatinine
Glucose
Calcium
Vital Signs:
Vital Signs
Temp Pulse Resp BP Pulse Ox
98.4 F 77 18 136/69 98
02/29/24 11:13 02/29/24 11:13 02/29/24 11:13 02/29/24 11:13 02/29/24 11:13
[2024-02-29 20:40] LABS: Hematocrit 30.7 % (39.0-52.0); Hemoglobin 9.8 g/dL (13.0-18.0)
[2024-02-29] MEDS: LIPITOR 10 MG PO (21:17)
[2024-02-29] MEDS: THERAGRAN 1 TABLET PO (21:17)
[2024-02-29] MEDS: PLENDIL EXTENDED RELEASE 10 MG PO (21:23)
[2024-03-01] VITALS (8 sets, daily range): BP systolic 118–172; BP diastolic 67–102; BMI 25.9
[2024-03-01 02:19] LABS: Hematocrit 30.2 % (39.0-52.0); Hemoglobin 9.8 g/dL (13.0-18.0)
[2024-03-01] MEDS: PROTONIX IV 40 MG IV (08:22)
[2024-03-01] MEDS: NSS (PRESERVATIVE FREE) 10 ML IV (08:22)
[2024-03-01 10:14] LABS: % Basophils 0.1 % (0-2); % Eosinophils 0.3 % (0-6); % Immature Granulocytes 0.2 % (0-0.5); % Lymphocytes 94.4 % (20.5-51.1); % Monocytes 0.8 % (1.7-9.3); % Neutrophils 4.2 % (42.2-75.2); Absolute Basophils 0.2 10^3/uL (0-0.2); Absolute Eosinophils 0.4 10^3/uL (0-0.7); Absolute Immature Granulocytes 0.2 10^3/uL (0-0.05); Absolute Monocytes 1.1 10^3/uL (0.1-0.6); Absolute Neutrophils 5.7 10^3/uL (1.4-6.5); Hematocrit 36.2 % (39.0-52.0); Hemoglobin 11.1 g/dL (13.0-18.0); Mean Corp Hgb Conc. 30.7 g/dL (33.0-37.0); Mean Corpuscular Hgb 30.1 pg (27.0-31.0); Mean Corpuscular Volume 98.1 fL (80.0-94.0); Mean Platelet Volume 9.8 fL (7.4-10.4); Nucleated Red Blood Cells % 0 % (-); Platelet Count 180 10^3/uL (130-400); Red Blood Cell Count 3.69 10^6/uL (4.70-6.10); Red Cell Dist. Width 13.5 % (11.5-14.5)
[2024-03-01 10:36] LABS: White Blood Cell Count 135.6 10^3/uL (4.8-10.8)
[2024-03-01 10:58] LABS: Blood Urea Nitrogen 17 mg/dl (9-20); Calcium 9.1 mg/dl (8.4-10.2); Carbon Dioxide 30 mmol/L (22-30); Chloride 105 mmol/L (98-107); Estimated Creatinine Clearance 91 ml/min; Glucose 91 mg/dl (70-99); Potassium 4.1 mmol/L (3.5-5.1); Sodium 141 mmol/L (135-145); eGFR > 60.00
--- NOTE | 2024-03-01 11:58 | CM ---
Patient seen bedside.
IA completed.
Patient lives with spouse in a 1 story home with 2 steps to enter.
Patient independent prior to admission without assistive devices.
Patient drives.
PCP: Dr Toussaint
Pharmacy: [facility]
Plan: home no needs anticipated.
--- NOTE | 2024-03-01 13:11 | W.PN.GI.CBS2 ---
Today's Communication / Plan
-
-Painless hematochezia, likely diverticular
Currently hemodynamically stable. Hemoglobin stable
No further bleeding at this time.
Okay for full liquid diet and advance to low residue diet as tolerated.
He has outpatient follow-up in March, reinforced that he needs to keep it up.
Will follow-up
Assessment / Plan
-
73-year-old male with past medical history of CLL (2015) colon cancer s/p resection 2001 (cecal cancer), rectal carcinoma (1986), hypertension, hyperlipidemia who presents to the emergency room with rectal bleeding. Asked to evaluate for the same.
The patient states that yesterday evening around 6 PM he felt the urge to have a bowel movement. He states that this was straight bright red blood per rectum. He states that he had another large episode. He drove himself to the emergency room.
He continued to have multiple episodes of painless rectal bleeding that was maroon associated with sweating, diaphoresis and feeling faint. The patient's last episode was last evening in the emergency room. He is tolerating clear liquids.Patient
has a history of CLL and states his baseline white count is around 116. This was last checked in the early spring. The patient follows with Dr. Vasquez. Current white count is 127 down from 162. Hemoglobin is 10.6 down from 12.2. Hematocrit
is 34.2 down from 37.2, platelets 179.
Impression:
GI bleed, bright red blood. Likely diverticular. Patient with recent colonoscopy 4 months ago and left-sided diverticular disease.
Acute blood loss anemia
History of CLL
History of colon cancer x 2, status post right hemicolectomy, low anterior resection
-Painless hematochezia, likely diverticular
Currently hemodynamically stable. Hemoglobin stable
No further bleeding at this time.
Okay for full liquid diet and advance to low residue diet as tolerated.
He has outpatient follow-up in March, reinforced that he needs to keep it up.
Will follow-up
Subjective
Subjective
Date of Service: March 01, 2024
No further bowel movements with blood since admission. No abdominal pain.
Objective
Data Reviewed
Laboratory Data:
Laboratory Results
03/01/24 08:04
Laboratory Results
PT 13.3 Sec (11.4-14.6) 02/28/24 20:
INR 1.01 02/28/24 20:
APTT 23.1 Sec (23.4-35.0) L 02/28/24 20:
Total Bilirubin 0.3 mg/dl (0.2-1.3) 02/28/24:
AST 25 U/L (17-59) 02/28/24 20:
ALT 17 U/L (0-50) 02/28/24 20:
Alkaline Phosphatase 64 U/L (38-126) 02/28/24 20:
Vital Signs and I&O:
Vital Signs
Temp Pulse Resp BP Pulse Ox
98.3 F 103 16 137/82 98
03/01/24 10:32 03/01/24 10:32 03/01/24 10:32 03/01/24 10:32 03/01/24 10:32
I&O
02/29/24 03/01/24 03/02/24
06:59 06:59 06:59
Intake Total 900 / 900 480 / 480
Balance 900 / 900 480 / 480
Physical Exam
Physical Exam
GI: Soft, Non Distended, Non Tender and Normal Bowel Sounds
[2024-03-01 14:24] LABS: Hematocrit 33.6 % (39.0-52.0)
--- NOTE | 2024-03-01 14:42 | W.PN.HOSP.TC ---
Today's Communication/Plan
-
-Patient had bowel movement with bright red blood and clots --> I spoke with GI --> if patient has another large bowel movement with blood, will need CTA ordered stat and notify GI stat
-Monitor H&H
-Diet changed back to clear liquids
-Transfer to IMU in the setting of tachycardia and bloody bowel movements again today
Assessment / Plan
Assessment / Plan
Physical Exam
General: Not in acute distress
HEENT: Normocephalic
Respiratory: CTAB
Cardiac: S1/S2 and Regular Rhythm
GI: Soft, Non Tender, Non Distended, Normal Bowel Sounds
Musculoskeletal: No Cyanosis and No Edema
Skin: Warm and Dry
Neuro: AAO x 3, No Motor Deficits, Nonfocal/grossly intact
Psych: Calm
Assessment/Plan
#Bright red blood per rectum concern for lower GI bleed vs diverticular bleed
#Chronic rectal incontinence is doing pelvic floor therapy
-Type and screen
-Hold aspirin, cholestyramine
-Clear Liquid Diet
-IV PPI daily
-GI evaluation appreciated
-Colorectal surgery evaluation appreciated
-If patient has acute active bleeding would then perform CTA versus bleeding scan for possible IR embolization; can also consider GI for colonoscopy with endoscopic control of bleeding; surgery remains last resort unless there is concern for
hemorrhoidal bleeding -- as per colorectal surgery
-Patient had bowel movement with bright red blood and clots --> I spoke with GI --> if patient has another large bowel movement with blood, will order CTA stat
-Check CBC this evening
-Transfer to IMU in the setting of tachycardia and bloody bowel movements again today
#Hx Colon CA s/p resection 1985, 2001
#Rectal carcinoma 1986
#Right hemicolectomy with lysis of adhesions 2006 cecal carcinoma
-Hold cholestyramine, aspirin, lisinopril
#CLL Dx 2015
-Consulted Hematology, recommendations appreciated
#HTN�benign
BP 131/63
Hold lisinopril 40 mg at bedtime
cont felodipine 10 mg at bedtime
#HLD
-Hold simvastatin 2 mg at bedtime
DVT prophylaxis
-SCDs
Full code
Anticipated Discharge: > 48 hours
Subjective/Interval History
-
Date of Service: March 01, 2024
Patient was seen and examined. He reported feeling okay, in the afternoon he had a bloody bowel movement.
Objective Data
-
Labs:
Laboratory Results
03/01/24 03/01/24 03/01/24
08:04 08:04 08:04
WBC 135.6 H*
Hgb 11.1 L Cancelled
Hct 36.2 L Cancelled
Plt Count 180
Sodium 141
Potassium 4.1
Chloride 105
Carbon Dioxide 30
BUN 17
Creatinine 0.7
Glucose 91
Calcium 9.1
03/01/24
14:10
WBC
Hgb 11.0 L
Hct 33.6 L
Plt Count
Sodium
Potassium
Chloride
Carbon Dioxide
BUN
Creatinine
Glucose
Calcium
Vital Signs:
Vital Signs
Temp Pulse Resp BP Pulse Ox
97.9 F 122 16 168/100 99
03/01/24 14:33 03/01/24 14:33 03/01/24 14:33 03/01/24 14:35 03/01/24 14:33
I&O
02/29/24 03/01/24 03/02/24
06:59 06:59 06:59
Intake Total 900 / 900 480 / 480
Balance 900 / 900 480 / 480
--- NOTE | 2024-03-01 16:16 | PTCARENOTE ---
at 1430 pt had bowel movement with bright red blood and clots. while in bathroom heart rate was in the 140s. pt denied dizziness or chest pain. once back in bed heart rate was between 115-120. Dr Spicer and Dr Lopez (GI) made aware. hemoglobin
at 1410 was 11.0. Type and Screen ordered. consent for blood on chart from ER. Pt placed back on clear liquids. If pt has episode of bleeding again a CTA. pt also to be transferred to IMU. pt and family updated on all new orders. IMU bed not
available at this time. will be transferred once available.
[2024-03-01 20:29] LABS: Hemoglobin 10.9 g/dL (13.0-18.0)
--- NOTE | 2024-03-01 20:40 | PTCARENOTE ---
Received pt from 4W RN. Pt AAOx3. NSR on the monitor, sinus tach w/ activity (130s). On RA O2 sat 98%, lungs clear. BRPx1. Pt reports incont of stool @ times. SCDs in place. CHG bath provided. Pt is OOB in chair x1 assisted back to bed. Pt is laying
comfortable in bed with call estevez in reach.
[2024-03-01] MEDS: THERAGRAN 1 TABLET PO (21:17)
[2024-03-01] MEDS: PLENDIL EXTENDED RELEASE 10 MG PO (21:17)
[2024-03-01] MEDS: LIPITOR 10 MG PO (21:18)
[2024-03-02] VITALS (12 sets, daily range): BP systolic 108–146; BP diastolic 65–83; BMI 25.3
[2024-03-02 04:49] LABS: % Basophils 0.2 % (0-2); % Eosinophils 0.3 % (0-6); % Immature Granulocytes 0.2 % (0-0.5); % Lymphocytes 94.5 % (20.5-51.1); % Monocytes 0.8 % (1.7-9.3); Absolute Basophils 0.2 10^3/uL (0-0.2); Absolute Eosinophils 0.3 10^3/uL (0-0.7); Absolute Immature Granulocytes 0.2 10^3/uL (0-0.05); Absolute Neutrophils 4.9 10^3/uL (1.4-6.5); Hematocrit 31.8 % (39.0-52.0); Hemoglobin 10.2 g/dL (13.0-18.0); Mean Corp Hgb Conc. 32.1 g/dL (33.0-37.0); Mean Corpuscular Volume 93.5 fL (80.0-94.0); Mean Platelet Volume 9.2 fL (7.4-10.4); Nucleated Red Blood Cells % 0 % (-); Platelet Count 209 10^3/uL (130-400); Red Cell Dist. Width 13.2 % (11.5-14.5)
[2024-03-02 05:04] LABS: White Blood Cell Count 119.6 10^3/uL (4.8-10.8)
[2024-03-02 05:12] LABS: Blood Urea Nitrogen 15 mg/dl (9-20); Calcium 9.4 mg/dl (8.4-10.2); Carbon Dioxide 27 mmol/L (22-30); Chloride 105 mmol/L (98-107); Estimated Creatinine Clearance 91 ml/min; Glucose 103 mg/dl (70-99); Potassium 3.9 mmol/L (3.5-5.1); Sodium 141 mmol/L (135-145); eGFR > 60.00
[2024-03-02] MEDS: PROTONIX IV 40 MG IV (08:03)
[2024-03-02] MEDS: NSS (PRESERVATIVE FREE) 10 ML IV (08:03)
--- NOTE | 2024-03-02 10:01 | W.PN.HOSP.TC ---
Today's Communication/Plan
-
Await further GI recommendation
Follow hemoglobin level
Possible discharge today versus tomorrow
Assessment / Plan
Assessment / Plan
1. Bright red blood per rectum
Acute blood loss anemia
Diverticular disease
-Patient reported bright blood per rectum after lunch yesterday
-Hemoglobin remained stable and 10.2 today.
-No further episode reported overnight
-GI following and help appreciated
-Currently on full liquid diet, continue
-ASA is on hold
2. Sinus tachycardia
-From GI bleed, asymptomatic
-Adding small dose of Lopressor as long as blood pressure allows
3. Chronic rectal incontinence
Pelvic floor therapy
-With history of colon resection
-Patient wants cholestyramine at home
4. Hx Colon CA s/p resection 1985, 2001
Rectal carcinoma 1986
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
-Follows up with CRS.
5. CLL Dx 2015
-Lymphocyte dominant leukocytosis
- hematology reviewed, continue to f/u in office
6. Essential hypertension
-Lisinopril on hold. Continue felodipine at bed time
-Adding Lopressor for rate control.
7. HLD
-Hold simvastatin 2 mg at bedtime
DVT prophylaxis -SCDs
Full code
Anticipated Discharge: 24 - 48 hours
Subjective/Interval History
-
Date of Service: March 02, 2024
patient had an episode of Bright red blood in stool in afternoon post lunch
have some associated sinus tachycardia, denies dizziness/palpitation/chest discomfort
No other acute issues reported overnight
Objective Data
-
Labs:
Laboratory Results
03/02/24
04:30
WBC 119.6 H*
Hgb 10.2 L
Hct 31.8 L
Plt Count 209
Sodium 141
Potassium 3.9
Chloride 105
Carbon Dioxide 27
BUN 15
Creatinine 0.7
Glucose 103 H
Calcium 9.4
Vital Signs:
Vital Signs
Temp Pulse Resp BP Pulse Ox
97.8 F 68 20 122/65 93
03/02/24 07:50 03/02/24 06:00 03/02/24 06:00 03/02/24 06:00 03/02/24 06:00
I&O
03/01/24 03/02/24 03/03/24
06:59 06:59 06:59
Intake Total 900 / 900 890 / 890
Output Total 275 / 275
Balance 900 / 900 615 / 615
Review of Systems
-
Respiratory: Reports No Symptoms
Cardiac: Reports No Symptoms
Abdomen/GI: Reports No Symptoms
Physical Exam
-
General: No Apparent Distress and Comfortable
HEENT: Negative Oxygen
Respiratory: Clear to Auscultation
Cardiac: Regular Rhythm, S1/S2 and Tachycardic; Negative Murmur
GI: Soft, Nontender and Nondistended
Musculoskeletal: No Edema
Neuro: Awake, Alert, Oriented, No Motor Deficits and Nonfocal/Grossly Intact
Psych: Calm
--- NOTE | 2024-03-02 12:04 | W.PN.GI.CBS2 ---
Today's Communication / Plan
-
-Painless hematochezia, likely diverticular
He probably passed old blood 03/01/2024-hemoglobin did not change much since 02/29/2024 did not require any blood transfusion
Currently hemodynamically stable. Hemoglobin stable
No further bleeding at this time.
Will give a trial of full liquid diet again and advance to low residue diet as tolerated.
He has outpatient follow-up in March, reinforced that he needs to keep it up.
Will follow-up
-h/o CML with leukocytosis
Assessment / Plan
-
73-year-old male with past medical history of CLL (2015) colon cancer s/p resection 2001 (cecal cancer), rectal carcinoma (1986), hypertension, hyperlipidemia who presents to the emergency room with rectal bleeding. Asked to evaluate for the same.
The patient states that yesterday evening around 6 PM he felt the urge to have a bowel movement. He states that this was straight bright red blood per rectum. He states that he had another large episode. He drove himself to the emergency room.
He continued to have multiple episodes of painless rectal bleeding that was maroon associated with sweating, diaphoresis and feeling faint. The patient's last episode was last evening in the emergency room. He is tolerating clear liquids.Patient
has a history of CLL and states his baseline white count is around 116. This was last checked in the early spring. The patient follows with Dr. Vasquez. Current white count is 127 down from 162. Hemoglobin is 10.6 down from 12.2. Hematocrit
is 34.2 down from 37.2, platelets 179.
Impression:
GI bleed, bright red blood. Likely diverticular. Patient with recent colonoscopy 4 months ago and left-sided diverticular disease.
Acute blood loss anemia
History of CLL
History of colon cancer x 2, status post right hemicolectomy, low anterior resection
-Painless hematochezia, likely diverticular
He probably passed old blood 03/01/2024-hemoglobin did not change much since 02/29/2024 did not require any blood transfusion
Currently hemodynamically stable. Hemoglobin stable
No further bleeding at this time.
Will give a trial of full liquid diet again and advance to low residue diet as tolerated.
He has outpatient follow-up in March, reinforced that he needs to keep it up.
Will follow-up
-h/o CML with leukocytosis
Subjective
Subjective
Date of Service: March 02, 2024
Patient did not have any bowel movements since his episode of bloody bowel movement yesterday.
Objective
Data Reviewed
Laboratory Data:
Laboratory Results
03/02/24 04:30
03/02/24 04:30
Laboratory Results
PT 13.3 Sec (11.4-14.6) 02/28/24 20:29
INR 1.01 02/28/24 20:29
APTT 23.1 Sec (23.4-35.0) L 02/28/24 20:29
Total Bilirubin 0.3 mg/dl (0.2-1.3) 02/28/24 20:29
AST 25 U/L (17-59) 02/28/24 20:29
ALT 17 U/L (0-50) 02/28/24 20:29
Alkaline Phosphatase 64 U/L (38-126) 02/28/24 20:29
Vital Signs and I&O:
Vital Signs
Temp Pulse Resp BP Pulse Ox
97.8 F 109 16 143/72 97
03/02/24 07:50 03/02/24 10:00 03/02/24 10:00 03/02/24 10:00 03/02/24 10:00
I&O
03/01/24 03/02/24 03/03/24
06:59 06:59 06:59
Intake Total 900 / 900 890 / 890
Output Total 275 / 275
Balance 900 / 900 615 / 615
Physical Exam
Physical Exam
GI: Soft, Non Distended and Non Tender
[2024-03-02] MEDS: LOPRESSOR 12.5 MG PO ×2 (12:12→19:53)
--- NOTE | 2024-03-02 13:57 | PTCARENOTE ---
Assumed care of patient at beginning of this shift from previous RN. Patient assisted to BR and HR went to the 140s; asymptomatic. No bm this morning. Dr Olson made aware; metoprolol 12.5mg ordered by him. Patient tolerated clear liquid breakfast;
GI in to see patient and upgraded diet to full liquid. See worklist for full assessment and vital signs; see MAR for med administration.
--- NOTE | 2024-03-02 15:53 | PTCARENOTE ---
Patient had large black/brown loose bm in commode; tested heme positive. He then had loose bm in toilet that appeared brown, unable to heme test. [place] text sent to both Dr Olson and Dr Lopez. Per Dr Lopez, patient may maintain current full
liquid diet at this time.
--- NOTE | 2024-03-02 15:55 | PTCARENOTE ---
Patient worked with PT; ambulated in room, around [place] and did stairs. HR 114; currently 78. Refer to PT notes.
--- NOTE | 2024-03-02 17:13 | PTCARENOTE ---
Patient transferred to [facility] [place] via [place]; report given to Danita. Venkats sent with patient.
--- NOTE | 2024-03-02 19:18 | PTCARENOTE ---
Received patient from [facility]. Pt oriented to room. Offered no complaints. Made patient comfortable. Cont to assess patients status.
[2024-03-02] MEDS: LIPITOR 10 MG PO (22:17)
[2024-03-02] MEDS: THERAGRAN 1 TABLET PO (22:18)
[2024-03-02] MEDS: PLENDIL EXTENDED RELEASE 10 MG PO (22:22)
[2024-03-03 03:31] VITALS: BP 116/61
[2024-03-03 05:40] LABS: Hematocrit 31.4 % (39.0-52.0); Hemoglobin 10.2 g/dL (13.0-18.0); Mean Corp Hgb Conc. 32.5 g/dL (33.0-37.0); Mean Corpuscular Hgb 30.8 pg (27.0-31.0); Mean Corpuscular Volume 94.9 fL (80.0-94.0); Mean Platelet Volume 9.4 fL (7.4-10.4); Platelet Count 191 10^3/uL (130-400); Red Blood Cell Count 3.31 10^6/uL (4.70-6.10); Red Cell Dist. Width 13.2 % (11.5-14.5)
[2024-03-03 06:00] VITALS: BMI 25.1
[2024-03-03 06:04] LABS: White Blood Cell Count 121.9 10^3/uL (4.8-10.8)
[2024-03-03 06:07] LABS: Blood Urea Nitrogen 13 mg/dl (9-20); Calcium 9.2 mg/dl (8.4-10.2); Carbon Dioxide 31 mmol/L (22-30); Chloride 103 mmol/L (98-107); Estimated Creatinine Clearance 91 ml/min; Glucose 96 mg/dl (70-99); Sodium 141 mmol/L (135-145); eGFR > 60.00
[2024-03-03 07:20] VITALS: BP 126/69
--- NOTE | 2024-03-03 07:53 | W.PN.GI.CBS2 ---
Today's Communication / Plan
-
low residue diet
Assessment / Plan
-
73-year-old male with past medical history of CLL (2015) colon cancer s/p resection 2001 (cecal cancer), rectal carcinoma (1986), hypertension, hyperlipidemia who presents to the emergency room with rectal bleeding. Asked to evaluate for the same.
The patient states that yesterday evening around 6 PM he felt the urge to have a bowel movement. He states that this was straight bright red blood per rectum. He states that he had another large episode. He drove himself to the emergency room.
He continued to have multiple episodes of painless rectal bleeding that was maroon associated with sweating, diaphoresis and feeling faint. The patient's last episode was last evening in the emergency room. He is tolerating clear liquids.Patient
has a history of CLL and states his baseline white count is around 116. This was last checked in the early spring. The patient follows with Dr. Vasquez. Current white count is 127 down from 162. Hemoglobin is 10.6 down from 12.2. Hematocrit
is 34.2 down from 37.2, platelets 179.
Impression:
GI bleed, bright red blood. Likely diverticular. Patient with recent colonoscopy 4 months ago and left-sided diverticular disease.
Acute blood loss anemia-> Hgb stable
History of CLL-> baseline WBC count around 117
History of colon cancer x 2, status post right hemicolectomy, low anterior resection
Plan:
Advance to low residue diet as tolerated. Educated on this. Should continue for 1 week then slowly advance fiber back into diet.
He has outpatient follow-up in March, with Dr. Carolina
Add cholestyramine back to daily meds.
Subjective
Subjective
Date of Service: March 03, 2024
Patient without any further signs of bleeding. Had brown loose stool last night (his chronic, as he is off cholestyramine). Hgb stable. Tolerating full liquids. Would like to advance diet. Will advance to low residue. Educated patient on low residue
diet.
Objective
Data Reviewed
Laboratory Data:
Laboratory Results
03/03/24 04:37
03/03/24 04:37
Laboratory Results
PT 13.3 Sec (11.4-14.6) 02/28/24 20:29
INR 1.01 02/28/24 20:29
APTT 23.1 Sec (23.4-35.0) L 02/28/24 20:29
Total Bilirubin 0.3 mg/dl (0.2-1.3) 02/28/24 20:29
AST 25 U/L (17-59) 02/28/24 20:
ALT 17 U/L (0-50) 02/28/24 20:
Alkaline Phosphatase 64 U/L (38-126) 02/28/24 20:29
Vital Signs and I&O:
Vital Signs
Temp Pulse Resp BP Pulse Ox
97.7 F 66 18 116/61 95
03/03/24 03:31 03/03/24 03:31 03/03/24 03:31 03/03/24 03:31 03/03/24 03:31
I&O
03/02/24 03/03/24 03/04/24
06:59 06:59 06:59
Intake Total 890 / 890 600 / 600
Output Total 275 / 275 600 / 600
Balance 615 / 615 0 / 0
Physical Exam
Physical Exam
HEENT: Anicteric
Cardiology: Normal Sinus Rhythm
Pulmonary: Clear
GI: Soft, Non Distended, Non Tender and Normal Bowel Sounds
Extremities: No Edema
Neuro: Non Focal
[2024-03-03] MEDS: LOPRESSOR 12.5 MG PO (08:45)
[2024-03-03] MEDS: NSS (PRESERVATIVE FREE) 10 ML IV (08:46)
[2024-03-03] MEDS: PROTONIX IV 40 MG IV (08:46)
[2024-03-03] MEDS: QUESTRAN 4 GRAM PO (10:11)
--- NOTE | 2024-03-03 10:39 | CM ---
MD entered order for discharge.
Spoke with nmpatient he said he was ready for dc today.
Offered Vn he declined need.
IMM reviewed all questions answered. Agreed with dc.
Olivia will drive her home.
PLAN Home no needs
[2024-03-03 11:01] VITALS: BP 124/68
--- NOTE | 2024-03-03 13:09 | W.PN.HOSP.TC ---
Today's Communication/Plan
-
d/c home
Assessment / Plan
Assessment / Plan
1. Bright red blood per rectum
Acute blood loss anemia
Diverticular disease
-Patient reported bright blood per rectum after lunch yesterday
-Hemoglobin remained stable and 10.2 today.
-No further episode reported overnight
-ASA is on hold, resume after 72 hrs post discharge.
-Diet advanced to LR diet, tolerated without problems
-Patient to follow-up with GI in office
2. Sinus tachycardia
-From GI bleed, asymptomatic
-Adding small dose of Lopressor as long as blood pressure allows
3. Chronic rectal incontinence
Pelvic floor therapy
-With history of colon resection
-Patient wants cholestyramine at home
4. Hx Colon CA s/p resection 1985, 2001
Rectal carcinoma 1986
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
-Follows up with CRS.
5. CLL Dx 2015
-Lymphocyte dominant leukocytosis
- hematology reviewed, continue to f/u in office
6. Essential hypertension
-Lisinopril on hold. Continue felodipine at bed time
-Adding Lopressor for rate control.
7. HLD
-Hold simvastatin 2 mg at bedtime
DVT prophylaxis -SCDs
Full code
More than 30 minutes spent in discharge including
Final examination of the patient
Summarizing hospital stay
Instructions for continuing care to all relevant caregivers
Preparation of discharge records, prescriptions, and referral forms
Total time spent (in minutes): 38 mins
Anticipated Discharge: Today
Subjective/Interval History
-
Date of Service: March 03, 2024
no more blood in stool overnight
no other issues
Objective Data
-
Labs:
Laboratory Results
03/03/24
04:37
WBC 121.9 H*
Hgb 10.2 L
Hct 31.4 L
Plt Count 191
Sodium 141
Potassium 4.0
Chloride 103
Carbon Dioxide 31 H
BUN 13
Creatinine 0.7
Glucose 96
Calcium 9.2
Vital Signs:
Vital Signs
Temp Pulse Resp BP Pulse Ox
98.8 F 73 16 124/68 96
03/03/24 11:01 03/03/24 11:01 03/03/24 11:01 03/03/24 11:01 03/03/24 11:01
I&O
03/02/24 03/03/24 03/04/24
06:59 06:59 06:59
Intake Total 890 / 890 600 / 600
Output Total 275 / 275 600 / 600
Balance 615 / 615 0 / 0
Review of Systems
-
Respiratory: Reports No Symptoms
Cardiac: Reports No Symptoms
Abdomen/GI: Reports No Symptoms
Physical Exam
-
General: No Apparent Distress and Comfortable
HEENT: Negative Oxygen
Respiratory: Clear to Auscultation
Cardiac: Regular Rhythm, S1/S2 and Tachycardic; Negative Murmur
GI: Soft, Nontender and Nondistended
Musculoskeletal: No Edema
Neuro: Awake, Alert, Oriented, No Motor Deficits and Nonfocal/Grossly Intact
Psych: Calm
[2024-03-03 15:06] LABS: Hepatitis C Antibody Negative (Negative)
--- NOTE | 2024-03-03 17:20 | W.DCSUMMARY ---
Discharge Summary
Discharge Data
Date of Admission: 02/28/24
Date of Discharge: 03/03/24
-
Pending Results: No
Hospital Course
Discharging Physician : Dr Dani Olson
Disposition : Home
Primary care physician : Dr Lissa Toussaint
Principal Discharge diagnosis :
Lower gastrointestinal bleed, presumed diverticular in nature
Acute blood loss anemia
Sinus tachycardia
Chronic Discharge diagnosis :
Chronic rectal incontinence
History of colon cancer s/p resection
History of rectal cancer
History of adhesion of lysis
Essential hypertension
Hyperlipidemia
Hospital Course :
Patient is a 73-year-old male with mentioned past medical history came to ER with having new onset of bright red blood in stool. Patient has history of colon cancer/resection and chronic stool incontinence and has been following with colorectal
surgery in the past. Gastroenterology was involved in care with patient having new onset of lower GI bleed. patient bleed was suspected to be diverticular in nature. Patient was monitored in hospital for 48 hours and had few more small bleeding
episode. Patient hemoglobin remained stable and did not require any blood transfusion. Patient was started on trial of liquid diet and advance to low residue diet eventually. Patient was discharged home at this point with follow-up with
colorectal surgery in office.
Important imaging findings :
None
Procedure findings :
None
Discharge Plan
-
Patient Disposition: Home (Routine Discharge)
Discharge Diagnosis/Procedures: Lower gi bleed, presumed diverticular
Condition: Fair
Diet: Other diet
Additional Diets: Low residue diet for 1 week
Activity: As tolerated
Driving Restrictions: As prior to admission
Bathing Restrictions: OK to Shower
Referrals:
Samantha Carolina MD [Active] - in two to three weeks
Lissa Toussaint DO [Family Provider] - in one week
Prescriptions:
Continued
simvastatin 20 MG tablet
20 mg PO HS
lisinopril [Zestril] 40 MG tablet
40 mg PO HS
cholestyramine (with sugar) 4 GM powder in packet
4 gm PO DAILY
psyllium Packet
1 packet PO DAILY
therapeutic multivitamin Tablet
1 tab PO HS
felodipine 10 mg Tablet Extended Release 24 Hr
10 mg PO HS
Tylenol PM Extra Strength 25-500 mg Tablet
2 tab PO HS
loperamide [Imodium A-D] 1 mg/7.5 mL Liquid
2 mg PO Q4HPRN PRN (Reason: diarrhea)
Held
aspirin 81 MG tablet,chewable
81 mg PO HS
Hold Instructions: Resume on 03/06/24.
Discharge Orders:
Discharge Patient (As Directed); Ordered 03/03/24
Ordered By: Dani Olson
Discharge Date and Time
Discharge Date/Time: 03/03/24 14:52
Print Language: [place]
== END 2024-03-03 14:52 | disposition home or self-care (01) | DRG 378 ==
LOC: 4 EAST ACU 23:26
PROVIDERS: Clinical Nurse Specialist Family Health; Nurse Practitioner Family; ADMITTING PHYSICIAN Internal Medicine; ATTENDING PHYSICIAN Hospitalist; CONSULT PHYSICIAN Internal Medicine Gastroenterology; CONSULT PHYSICIAN Surgery; EMERGENCY PHYSICIAN Student in an Organized Health Care Education/Training Program; FAMILY PHYSICIAN Family Medicine; OTHER PHYSICIAN Internal Medicine Hematology & Oncology
DX: K57.31 Diverticulosis of large intestine without perforation or abscess with bleeding (principal); C91.11 Chronic lymphocytic leukemia of B-cell type in remission; D62 Acute posthemorrhagic anemia; R15.9 Full incontinence of feces; I10 Essential (primary) hypertension; E78.00 Pure hypercholesterolemia, unspecified; Z79.82 Long term (current) use of aspirin; Z85.048 Personal history of other malignant neoplasm of rectum, rectosigmoid junction, and anus
CPT/HCPCS: 80048; 80053; 85014; 85018; 85025; 85027; 85610; 85730; 86803; 86850; 86900; 86901; 96360; 97116; 97162; 97530; 99284

== ENCOUNTER 2024-03-18 16:16 | Outpatient (RCR) | payer MEDICARE, OTHER, SELFPAY | END 2024-03-18 23:59 | disposition home or self-care (01) | LOC: RPT 16:16 | PROVIDERS: ATTENDING PHYSICIAN Internal Medicine Gastroenterology; FAMILY PHYSICIAN Family Medicine | DX: R15.1 Fecal smearing (principal); R15.2 Fecal urgency; R15.9 Full incontinence of feces; M62.89 Other specified disorders of muscle; Z73.6 Limitation of activities due to disability; Z85.038 Personal history of other malignant neoplasm of large intestine; Z98.0 Intestinal bypass and anastomosis status | CPT/HCPCS: 97110; 97530 ==

== ENCOUNTER 2024-04-15 13:09 | Outpatient (RCR) | payer MEDICARE, OTHER, SELFPAY | END 2024-04-15 23:59 | disposition home or self-care (01) | LOC: RPT 13:09 | PROVIDERS: ATTENDING PHYSICIAN Internal Medicine Gastroenterology; FAMILY PHYSICIAN Family Medicine | DX: R15.1 Fecal smearing (principal); R15.2 Fecal urgency; R15.9 Full incontinence of feces; M62.89 Other specified disorders of muscle; Z73.6 Limitation of activities due to disability; Z85.038 Personal history of other malignant neoplasm of large intestine; Z98.0 Intestinal bypass and anastomosis status | CPT/HCPCS: 97140; 97530 ==

== ENCOUNTER 2024-05-06 14:52 | Outpatient (RCR) | payer MEDICARE, OTHER, SELFPAY | END 2024-05-06 23:59 | disposition home or self-care (01) | LOC: RPT 14:52 | PROVIDERS: ATTENDING PHYSICIAN Internal Medicine Gastroenterology; FAMILY PHYSICIAN Family Medicine | DX: R15.1 Fecal smearing (principal); R15.2 Fecal urgency; R15.9 Full incontinence of feces; M62.89 Other specified disorders of muscle; Z73.6 Limitation of activities due to disability; Z85.038 Personal history of other malignant neoplasm of large intestine; Z98.0 Intestinal bypass and anastomosis status | CPT/HCPCS: 97140; 97530 ==

== ENCOUNTER → 2024-05-13 17:56 | Outpatient (REF) | payer MEDICARE, OTHER, SELFPAY | LOC: CLAB 17:56 | PROVIDERS: ATTENDING PHYSICIAN Surgery | DX: K62.82 Dysplasia of anus (principal) | CPT/HCPCS: 88305 ==

== ENCOUNTER 2024-06-02 11:53 | Outpatient (RCR) | payer MEDICARE, OTHER, SELFPAY | END 2024-06-02 15:47 | disposition home or self-care (01) | LOC: RPT 11:53 | PROVIDERS: ATTENDING PHYSICIAN Internal Medicine Gastroenterology; FAMILY PHYSICIAN Family Medicine | DX: R15.1 Fecal smearing (principal); R15.2 Fecal urgency; R15.9 Full incontinence of feces; M62.89 Other specified disorders of muscle; Z73.6 Limitation of activities due to disability; Z85.038 Personal history of other malignant neoplasm of large intestine; Z98.0 Intestinal bypass and anastomosis status | CPT/HCPCS: 97530 ==

== ENCOUNTER → 2024-10-09 09:18 | Outpatient (REF) | payer MEDICARE, OTHER, SELFPAY ==
[2024-10-09 13:09] LABS: Hematocrit 44.6 % (39.0-52.0); Hemoglobin 13.6 g/dL (13.0-18.0); Mean Corp Hgb Conc. 30.5 g/dL (33.0-37.0); Mean Corpuscular Hgb 29.8 pg (27.0-31.0); Mean Corpuscular Volume 97.8 fL (80.0-94.0); Platelet Count 169 10^3/uL (130-400); Red Blood Cell Count 4.56 10^6/uL (4.70-6.10); Red Cell Dist. Width 13.2 % (11.5-14.5)
== END ==
LOC: HWLAB 09:18
PROVIDERS: ATTENDING PHYSICIAN Internal Medicine Gastroenterology; FAMILY PHYSICIAN Family Medicine; REFERRING PHYSICIAN Internal Medicine Hematology & Oncology
DX: K62.5 Hemorrhage of anus and rectum (principal)
CPT/HCPCS: 36415; 85027

== ENCOUNTER 2024-10-21 13:48 | Outpatient (RCR) | payer MEDICARE, OTHER, SELFPAY | END 2024-10-21 23:59 | disposition home or self-care (01) | LOC: RPT 13:48 | PROVIDERS: ATTENDING PHYSICIAN Family Medicine | DX: M25.512 Pain in left shoulder (principal); Z73.6 Limitation of activities due to disability; G89.29 Other chronic pain | CPT/HCPCS: 97110; 97112; 97162 ==

== ENCOUNTER 2024-11-18 13:55 | Outpatient (RCR) | payer MEDICARE, OTHER, SELFPAY | END 2024-11-18 23:59 | disposition home or self-care (01) | LOC: RPT 13:55 | PROVIDERS: ATTENDING PHYSICIAN Family Medicine | DX: M25.512 Pain in left shoulder (principal); Z73.6 Limitation of activities due to disability; G89.29 Other chronic pain | CPT/HCPCS: 97110; 97112; 97530 ==

== ENCOUNTER 2024-12-09 14:54 | Outpatient (RCR) | payer MEDICARE, OTHER, SELFPAY | END 2024-12-10 07:36 | disposition home or self-care (01) | LOC: RPT 14:54 | PROVIDERS: ATTENDING PHYSICIAN Family Medicine | DX: M25.512 Pain in left shoulder (principal); Z73.6 Limitation of activities due to disability; G89.29 Other chronic pain | CPT/HCPCS: 97110; 97112 ==

== ENCOUNTER → 2025-02-12 14:33 | Outpatient (REF) | payer MEDICARE, OTHER, SELFPAY | LOC: MRI 3T 14:33 | PROVIDERS: ATTENDING PHYSICIAN Specialist; FAMILY PHYSICIAN Family Medicine | DX: R97.20 Elevated prostate specific antigen [PSA] (principal) | CPT/HCPCS: 72197; A9575 ==

== ENCOUNTER 2025-03-09 05:54 | Day surgery (SDC) | payer MEDICARE, OTHER, SELFPAY ==
[2025-03-09 06:14] VITALS: BMI 27.4
[2025-03-09 06:19] VITALS: BP 140/73
[2025-03-09] MEDS: NORMOSOL-R/PLASMALYTE-A 1000 IV (06:40)
[2025-03-09] MEDS: NEOMYCIN ENEMA 1 BOTTLE RECTAL (06:40)
[2025-03-09 06:46] VITALS: BMI 27.4
[2025-03-09 08:22] VITALS: BP 113/72
[2025-03-09 08:30] VITALS: BP 107/59
[2025-03-09 08:45] VITALS: BP 120/65
[2025-03-09 09:00] VITALS: BP 123/67
[2025-03-09 09:15] VITALS: BP 127/57
== END 2025-03-09 09:30 | disposition home or self-care (01) ==
LOC: SDS 05:54
PROVIDERS: ATTENDING PHYSICIAN Specialist
DX: C61 Malignant neoplasm of prostate (principal); R97.20 Elevated prostate specific antigen [PSA]
CPT/HCPCS: 55700; 76998; 88305; 93005; J1580

== ENCOUNTER → 2025-03-25 12:20 | Outpatient (REF) | payer MEDICARE, OTHER, SELFPAY | LOC: PET 12:20 | PROVIDERS: ATTENDING PHYSICIAN Specialist | DX: C61 Malignant neoplasm of prostate (principal) | CPT/HCPCS: 78815 ==

== ENCOUNTER → 2025-04-01 08:20 | Outpatient (REF) | payer MEDICARE, OTHER, SELFPAY | LOC: RAD 08:20 | PROVIDERS: ATTENDING PHYSICIAN Specialist; FAMILY PHYSICIAN Family Medicine | DX: C61 Malignant neoplasm of prostate (principal) | CPT/HCPCS: 78306; A9503 ==

== ENCOUNTER → 2025-06-28 06:26 | Outpatient (REF) | payer MEDICARE, OTHER, SELFPAY ==
[2025-06-28 10:14] LABS: Hematocrit 38.8 % (39.0-52.0); Hemoglobin 12.2 g/dL (13.0-18.0); Mean Corp Hgb Conc. 31.4 g/dL (33.0-37.0); Mean Corpuscular Volume 94.2 fL (80.0-94.0); Platelet Count 153 10^3/uL (130-400); Red Cell Dist. Width 13.1 % (11.5-14.5)
[2025-06-28 10:58] LABS: Nucleated Red Blood Cells % 0 % (-)
== END ==
LOC: HWLAB 06:26
PROVIDERS: ATTENDING PHYSICIAN Physician Assistant Surgical; FAMILY PHYSICIAN Family Medicine
DX: C91.10 Chronic lymphocytic leukemia of B-cell type not having achieved remission (principal)
CPT/HCPCS: 36415; 85025

== ENCOUNTER → 2025-07-05 07:26 | Outpatient (REF) | payer MEDICARE, OTHER, SELFPAY ==
[2025-07-05 10:05] LABS: Hematocrit 38.5 % (39.0-52.0); Hemoglobin 12.2 g/dL (13.0-18.0); Mean Corp Hgb Conc. 31.7 g/dL (33.0-37.0); Mean Corpuscular Volume 93.7 fL (80.0-94.0); Platelet Count 150 10^3/uL (130-400); Red Cell Dist. Width 13.2 % (11.5-14.5)
[2025-07-05 12:26] LABS: Nucleated Red Blood Cells % 0 % (-)
== END ==
LOC: HWLAB 07:26
PROVIDERS: ATTENDING PHYSICIAN Physician Assistant Surgical; FAMILY PHYSICIAN Family Medicine
DX: C91.10 Chronic lymphocytic leukemia of B-cell type not having achieved remission (principal); C61 Malignant neoplasm of prostate; Z01.818 Encounter for other preprocedural examination
CPT/HCPCS: 36415; 85025

== ENCOUNTER → 2025-07-14 09:13 | Outpatient (REF) | payer MEDICARE, OTHER, SELFPAY | LOC: HWRCS 09:13 | PROVIDERS: ATTENDING PHYSICIAN Internal Medicine; FAMILY PHYSICIAN Family Medicine | DX: I10 Essential (primary) hypertension (principal); I45.4 Nonspecific intraventricular block | CPT/HCPCS: 93306 ==

== ENCOUNTER → 2025-07-22 13:22 | Outpatient (REF) | payer MEDICARE, OTHER, SELFPAY ==
[2025-07-22 16:25] LABS: Blood Urea Nitrogen 18 mg/dl (9-20); Calcium 9.8 mg/dl (8.4-10.2); Carbon Dioxide 28 mmol/L (22-30); Glucose 121 mg/dl (70-99); eGFR > 60.00
[2025-07-22 16:36] LABS: Chloride 104 mmol/L (98-107); Potassium 4.0 mmol/L (3.5-5.1); Sodium 142 mmol/L (135-145)
== END ==
LOC: HWLAB 13:22
PROVIDERS: ATTENDING PHYSICIAN Internal Medicine; FAMILY PHYSICIAN Family Medicine
DX: I77.810 Thoracic aortic ectasia (principal); Z01.812 Encounter for preprocedural laboratory examination
CPT/HCPCS: 36415; 80048

== ENCOUNTER → 2025-07-26 12:48 | Outpatient (REF) | payer MEDICARE, OTHER, SELFPAY | LOC: RAD 12:48 | PROVIDERS: ATTENDING PHYSICIAN Internal Medicine; FAMILY PHYSICIAN Family Medicine | DX: I77.810 Thoracic aortic ectasia (principal) | CPT/HCPCS: 71275; Q9967 ==

== ENCOUNTER → 2025-08-17 13:09 | Outpatient (REF) | payer MEDICARE, OTHER, SELFPAY | LOC: CLAB 13:09 | PROVIDERS: ATTENDING PHYSICIAN Specialist | DX: N39.0 Urinary tract infection, site not specified (principal) | CPT/HCPCS: 87077; 87086; 87186 ==

== ENCOUNTER → 2025-09-21 08:49 | Outpatient (REF) | payer MEDICARE, OTHER, SELFPAY ==
[2025-09-21 12:19] LABS: ALT (SGPT) 24 U/L (0-50); AST (SGOT) 19 U/L (17-59); HDL Cholesterol 43 mg/dl; LDL Cholesterol, Calculated 38 mg/dl; Very Low Density Lipoprotein 28 mg/dl (0-30)
== END ==
LOC: HWLAB 08:49
PROVIDERS: ATTENDING PHYSICIAN Internal Medicine; FAMILY PHYSICIAN Family Medicine
DX: E78.00 Pure hypercholesterolemia, unspecified (principal)
CPT/HCPCS: 36415; 80061; 84450; 84460